=== PATIENT | female | born 1980 | race Caucasian/White ===

== ENCOUNTER → 2020-01-19 | Outpatient (CLI) | payer MEDICAID ==
[2020-01-19 15:41] LABS: Basophils # (A) 0.1 k/uL (0-0.2); Basophils % (A) 1 %; Eosinophils # (A) 0.3 k/uL (0-0.7); Eosinophils % (A) 4 %; HGB 11.9 gm/dL (11.4-16.0); Lymphocytes # (A) 2.2 k/uL (1.0-4.8); Lymphocytes % (A) 24 %; MCH 26.4 pg (25.0-35.0); MCHC 32.1 g/dL (31.0-37.0); MCV 82.3 fL (80.0-100.0); Mean Platelet Volume 8.6; Monocytes # (A) 0.4 k/uL (0-1.0); Monocytes % (A) 5 %; Neutrophils % (A) 65 %; Platelet Count 195 k/uL (150-450); RDW 13.2 % (11.5-15.5); WBC 9.2 k/uL (3.8-10.6)
[2020-01-20 01:19] LABS: Hemoglobin A1C 5.3 % (4.0-6.0)
[2020-01-20 01:21] LABS: African American GFR (CKD) 127.4 (60.0-200.0); Anion Gap 10.9 mmol/L (4.00-12.00); Calcium 9.5 mg/dL (8.7-10.3); Carbon Dioxide 24.1 mmol/L (21.6-31.8); Chol/HDL Ratio 2.44; LDL Cholesterol,Calculated 102.2 mg/dL (0.0-131.0); Non-African American GFR(CKD) 109.9 (60.0-200.0); Potassium 4.2 mmol/L (3.5-5.5); VLDL Calculation 24.8 mg/dL (5.00-40.00)
== END | disposition home or self-care (01) ==
LOC: LABWHC1 14:41
PROVIDERS: ATTEND Pediatrics Pediatric Cardiology
DX: Q25.1 Coarctation of aorta (principal)
CPT/HCPCS: 36415; 80048; 80061; 82306; 83036; 83880; 85025

== ENCOUNTER → 2023-04-10 | Outpatient (CLI) | payer OTHER ==
--- NOTE | 2023-04-10 09:08 | MM ---
Reason for Exam: Screening (asymptomatic). Baseline mammogram. Patient History: Menarche at age 14. First Full-Term at age 30. Premenopausal. Patient has history of breast feeding. Paternal aunt had breast cancer at or over age 50. Paternal aunt had breast cancer at or over age 50. Paternal aunt had breast cancer at or over age 50. Last menstrual period: 04/01/2023 Risk Values: Corrina 5 year model risk: 0.7%. NCI Lifetime model risk: 10.9%. Prior Study Comparison: Patient's first Mammogram. Tissue Density: The breast tissue is heterogeneously dense. This may lower the sensitivity of mammography. Findings: Analyzed By CAD. There is no suspicious group of microcalcifications or new suspicious mass in either breast. Overall Assessment: Negative, BI-RAD 1 Management: Screening Mammogram of both breasts in 1 year. . Patient should continue monthly self-breast exams. A clinical breast exam by your physician is recommended on an annual basis. This exam should not preclude additional follow-up of suspicious palpable abnormalities. Note on Corrina scores and lifetime risk: 1. A Corrina score greater than 3% is considered moderate risk. If this is the case, consider specialist referral to assess eligibility for a risk reducing agent. 2. If overall lifetime risk for the development of breast cancer is 20% or higher, the patient may qualify for future screening with alternating mammogram and breast MRI. Electronically signed and approved by: Kishan Eden M.D. Radiologis
== END | disposition home or self-care (01) ==
LOC: RADMAMWWP 06:52
PROVIDERS: ATTEND Family Medicine
DX: Z12.31 Encounter for screening mammogram for malignant neoplasm of breast (principal); Z80.3 Family history of malignant neoplasm of breast
CPT/HCPCS: 77063; 77067

== ENCOUNTER → 2024-04-13 | Outpatient (CLI) | payer OTHER ==
--- NOTE | 2024-04-14 10:13 | MM ---
Reason for Exam: Screening (asymptomatic). Last screening mammogram was performed 12 month(s) ago. Patient History: Menarche at age 14. First Full-Term at age 30. Premenopausal. Patient has history of breast feeding. Paternal aunt had breast cancer at or over age 50. Paternal aunt had breast cancer at or over age 50. Paternal aunt had breast cancer at or over age 50. Risk Values: Corrina 5 year model risk: 0.8%. NCI Lifetime model risk: 10.8%. Prior Study Comparison: 04/10/2023 Bilateral MG 3D screening mammo w/cad, [facility]. Tissue Density: The breasts are heterogeneously dense, which may obscure small masses. Findings: Analyzed By CAD. Areas of asymmetric density in the left upper-outer quadrant left breast are more pronounced from prior exams and incompletely dispersed on 3-D views. These may represent areas of superimposition shadow but further evaluation is recommended. Otherwise, no significant change. Overall Assessment: Incomplete: need additional imaging evaluation, BI-RAD 0 Management: Special View Mammogram of the left breast. Include 3-D CC rolled view as well. [facility] will attempt to contact patient to return for supplemental views and ultrasound if indicated. [facility], , 04/14/2024 10:10 AM. Electronically signed and approved by: Hans Mayo M.D. Radiologist
== END | disposition home or self-care (01) ==
LOC: RADMAMWWP 08:41
PROVIDERS: ATTEND Family Medicine
CPT/HCPCS: 77063; 77067

== ENCOUNTER → 2024-04-15 | Outpatient (CLI) | payer OTHER ==
--- NOTE | 2024-04-15 09:43 | MM ---
Reason for Exam: Additional evaluation requested from abnormal screening. Last screening mammogram was performed less than 1 month ago. Patient History: Menarche at age 14. First Full-Term at age 30. Premenopausal. Patient has history of breast feeding. Paternal aunt had breast cancer at or over age 50. Paternal aunt had breast cancer at or over age 50. Paternal aunt had breast cancer at or over age 50. Risk Values: Corrina 5 year model risk: 0.8%. NCI Lifetime model risk: 10.8%. Prior Study Comparison: 04/10/2023 Bilateral MG 3D screening mammo w/cad, [facility]. 04/13/2024 Bilateral MG 3D screening mammo w/cad, [facility]. Tissue Density: Left: The breasts are heterogeneously dense, which may obscure small masses. Findings: Analyzed By CAD. The areas of questioned asymmetric density becomes less defined on the additional views favoring superimposition shadow. Precautionary six-month follow-up recommended. Overall Assessment: Probably benign, BI-RAD 3 Management: Diagnostic Mammogram of the left breast in 6 months. Results were given to the patient verbally at the time of exam. Patient should continue monthly self-breast exams. A clinical breast exam by your physician is recommended on an annual basis. This exam should not preclude additional follow-up of suspicious palpable abnormalities. Note on Corrina scores and lifetime risk: 1. A Corrina score greater than 3% is considered moderate risk. If this is the case, consider specialist referral to assess eligibility for a risk reducing agent. 2. If overall lifetime risk for the development of breast cancer is 20% or higher, the patient may qualify for future screening with alternating mammogram and breast MRI. [facility], , 04/15/2024 9:39 AM. Electronically signed and approved by: Hans Mayo M.D. Radiologist
== END | disposition home or self-care (01) ==
LOC: RADMAMWWP 09:10
PROVIDERS: ATTEND Family Medicine
CPT/HCPCS: 77061; 77065

== ENCOUNTER 2024-08-06 06:10 | Day surgery (SDC) | payer OTHER ==
[2024-08-04 08:30] VITALS: BMI 32.5
[~2024-08-06 06:10] MED LIST: Pre Op ABX Message 1 EACH MISC MISCELLANE ONE
[2024-08-06] MEDS ORDERED: LIDOCAINE 1% (10MG/ML) FOR IV START INTRADERMA PRN (06:57)
[2024-08-06] MEDS ORDERED: HYDROmorphone 0.5 MG/0.5 ML SYRINGE IVP PRN (07:00)
[2024-08-06] MEDS ORDERED: fentaNYL (PF) 50 MCG/ML 2 ML AMP IVP PRN (07:00)
[2024-08-06] MEDS ORDERED: MIDAZOLAM 2 MG/2 ML VIAL IV PRN (07:00)
[2024-08-06 07:05] VITALS: TEMP 98.3
[2024-08-06] MEDS: IV FLUID CONTINUATION 1,000 ML IV ONE (07:13)
[2024-08-06] MEDS: ONDANSETRON 4 MG/2 ML VIAL IVP ONE (07:17)
[2024-08-06] MEDS: LACTATED RINGERS 1,000 ML IV SCH (07:17)
[2024-08-06] MEDS: DEXAMETHASONE SOD PHOSPHATE 4 MG/ML 1 ML VIAL IV ONE (07:17)
[2024-08-06] MEDS ORDERED: KETOROLAC 15 MG/ML 1 ML VIAL ONE (07:25)
[2024-08-06] MEDS ORDERED: fentaNYL (PF) 50 MCG/ML 2 ML AMP ONE (07:25)
[2024-08-06] MEDS ORDERED: PROPOFOL 10 MG/ML 20 ML VIAL IV ONE (07:25)
[2024-08-06] MEDS ORDERED: LIDOCAINE 1% INJ 10MG/ML (20 ML MDV) ONE (07:25)
[2024-08-06] MEDS ORDERED: MIDAZOLAM 2 MG/2 ML VIAL ONE (07:25)
--- NOTE | 2024-08-06 08:07 | P.OP ---
Date of Procedure: 08/06/24 Preoperative Diagnosis: Heavy menstrual bleeding Postoperative Diagnosis: Same Procedure(s) Performed: Dilation curettage, hysteroscopy, IUD insertion, Mirena Anesthesia: MAC Surgeon: Bonita Leo Estimated Blood Loss (ml): 5 IV fluids (ml): 200 Urine output (ml): 50 Pathology: other (Endometrial curettings) Condition: stable Disposition: PACU Indications for Procedure: Heavy menstrual bleeding Operative Findings: Proliferative endometrium Description of Procedure: Patient is taken back to the operating suite after informed consent is obtained. Patient is prepped and draped in the normal sterile fashion after general anesthesia was obtained without difficulty by the anesthesia department. A weighted speculum is placed in the posterior vaginal vault. A red rubber catheter was used to drain the bladder of clear yellow urine. The anterior lip of the cervix was visualized and grasped with a single-tooth tenaculum. The endocervical canal was then serially dilated. Hysteroscope was placed through the cervix and toward the endometrium proliferative endometrium with multiple blood clots is appreciated. Hysteroscope was removed without difficulty. A sharp curettage was then performed, the specimen is sent to pathology for analysis. The Mirena was opened and set to the appropriate measurements with the patient's cavity. The Mirena was then introduced into the endometrial cavity and placed according to learning developer's instruction. Afterwards the housing property manager was removed and the strings are trimmed to 2 cm. The single-tooth tenaculum was taken off of the anterior lip of the cervix. Hemostasis is appreciated. All instruments were removed from the patient's vaginal vault. All counts are noted to be correct x 2. Patient was taken the recovery awake in stable condition.
[2024-08-06 09:27] VITALS: RESP 14
[2024-08-06 09:39] VITALS: BP 128/83; PULSE 77
== END 2024-08-06 09:32 | disposition home or self-care (01) ==
LOC: OR 06:10
PROVIDERS: ATTEND Obstetrics & Gynecology Obstetrics
DX: N92.0 Excessive and frequent menstruation with regular cycle (principal); N88.2 Stricture and stenosis of cervix uteri; I10 Essential (primary) hypertension
CPT/HCPCS: 58558; 58300; 81025; 88305; J2250; J1100; J2405; J2003; J3010; J1885; J2704